=== PATIENT | female | born 1950 | race Caucasian/White ===

== ENCOUNTER 2022-02-14 14:49 | Emergency (ER) | payer MEDICARE, OTHER ==
[~2022-02-14] VITALS: Ht 157.5 cm; Wt 68.9 kg
== END 2022-02-14 16:49 | disposition home or self-care (01) ==
LOC: ER 14:53
DX: M25.551 Pain in right hip (principal); R10.31 Right lower quadrant pain; M54.50 Low back pain, unspecified; W18.39XA Other fall on same level, initial encounter; Y93.01 Activity, walking, marching and hiking; Y92.89 Other specified places as the place of occurrence of the external cause; G20 Parkinson's disease; I10 Essential (primary) hypertension; E03.9 Hypothyroidism, unspecified; F41.9 Anxiety disorder, unspecified; I48.91 Unspecified atrial fibrillation; G89.29 Other chronic pain; Z96.642 Presence of left artificial hip joint
CPT/HCPCS: 74176; 99283